=== PATIENT | female | born 1940 | race Caucasian/White ===

== ENCOUNTER 2018-02-19 16:30 | Emergency (ER) | payer OTHER ==
[~2018-02-19] VITALS: Ht 149.9 cm; Wt 73.0 kg
[2018-02-19 16:37] VITALS: BP 150/62; PULSE 78; RESP 18; TEMP 98.4; O2SAT 95
[2018-02-19] MEDS ORDERED: POTA20TA5 PO (16:57)
[2018-02-19] MEDS ORDERED: ATOR10TA15 PO (16:57)
[2018-02-19] MEDS ORDERED: ASPI-516 CHEW (16:57)
[2018-02-19] MEDS ORDERED: ALEN1TAB48 PO (16:57)
[2018-02-19] MEDS ORDERED: MULTTAB67 PO (16:57)
[2018-02-19] MEDS ORDERED: LORA-650 PO (16:57)
[2018-02-19] MEDS ORDERED: BIOTCAP PO (16:57)
[2018-02-19] MEDS ORDERED: LISI20TA3 PO (16:57)
[2018-02-19] MEDS ORDERED: TAMO20TA6 PO (16:57)
[2018-02-19] MEDS ORDERED: GLUC500C5 PO (16:57)
--- NOTE | 2018-02-19 17:19 | PD ---
HPI Chief Complaint: Back/ Neck Pain or Injury Time Seen by Provider: 17:01 Travel History International Travel<30 days: No Contact w/Intl Traveler<30days: No Traveled to known affect area: No History of Present Illness HPI 78-year-old female complains of left upper back pain, left low back pain. Patient states that the pain started about 3 days ago. Patient states the pain aching pain constant pain localized to left upper back and left low back area. Patient denies any pain radiation. Patient states that the pain is worse with movement of the left upper arm. Patient denies any headache. Patient denies any neck pain. Patient denies any chest pain. Patient denies any shortness of breath. Patient denies abdominal pain. Patient denies any nausea vomiting diarrhea. Patient denies any dysuria frequency. Patient denies any fever chills. Patient denies any recent injury. Patient was seen in personal this afternoon and referred to ED for evaluation. Physician's office patient was seen by personal physician this afternoon and referred to ED for evaluation. Patient denies numbness or weakness of the extremity. Patient denies any history of CAD. Patient denies any history of CVA. Blood pressure was reported to be elevated at physician's office. Patient has history hypertension and has been taking blood pressure medication as directed. Patient also has history of hyperlipidemia. Patient is a non-smoker. Patient has history of breast cancer status post mastectomy in the past. PFSH Past Medical History Cardiovascular Problems: Yes (HTN) High Cholesterol: Yes Musculoskeletal: Yes (OSTEOPOROSIS) Influenza Vaccination: Yes Past Surgical History Mastectomy: Yes (RIGHT) Social History Alcohol Use: No Tobacco Use: No Substance Use: No Allergies-Medications (Allergen,Severity, Reaction): Coded Allergies: No Known Allergies (Unverified , 02/19/18) Reported Meds & Prescriptions Reported Meds & Active Scripts Active Reported Atorvastatin (Atorvastatin Calcium) 10 Mg Tab 10 Mg PO HS Lisinopril-Hctz 20-25 Mg Tab 1 Tab PO DAILY Allergy Relief (Loratadine) 10 Mg Tab 10 Mg PO DAILY Aspirin 81 Mg Chew 81 Mg CHEW DAILY Biotin 5 Mg Cap 5 Mg PO DAILY Multiple Vitamin 1 Tab 1 Tab PO DAILY Glucosamine (Glucosamine Sulfate) 500 Mg Cap 1,000 Mg PO DAILY Potassium Chloride Microencaps 20 Meq Tab 99 Mg PO DAILY Alendronate (Alendronate Sodium) 70 Mg Tab 70 Mg PO Q7D Tamoxifen (Tamoxifen Citrate) 20 Mg Tab 20 Mg PO DAILY Review of Systems General / Constitutional: No: Fever Eyes: No: Visual changes HENT: No: Headaches Cardiovascular: No: Chest Pain or Discomfort Respiratory: No: Shortness of Breath Gastrointestinal: No: Abdominal Pain Genitourinary: No: Dysuria Musculoskeletal: No: Pain Skin: No Rash Neurologic: No: Weakness Psychiatric: No: Depression Endocrine: No: Polydipsia Hematologic/Lymphatic: No: Easy Bruising Physical Exam Narrative GENERAL: Well-nourished, well-developed patient. SKIN: Focused skin assessment warm/dry. HEAD: Normocephalic. EYES: No scleral icterus. No injection or drainage. NECK: Supple, trachea midline. No JVD or lymphadenopathy. CARDIOVASCULAR: Regular rate and rhythm without murmurs, gallops, or rubs. RESPIRATORY: Breath sounds equal bilaterally. No accessory muscle use. GASTROINTESTINAL: Abdomen soft, non-tender, nondistended. MUSCULOSKELETAL: No cyanosis, or edema. BACK: Patient has mild tenderness on palpation of left upper back and left low back area, without obvious deformity. No CVA tenderness. Negative straight leg raising. Neurologic exam normal. Data Data Last Documented VS Vital Signs Date Time Temp Pulse Resp B/P (MAP) Pulse Ox O2 Delivery O2 Flow Rate FiO2 02/19/18 18:26 70 18 148/67 (94) 97 Room Air 02/19/18 16:37 98.4 Orders Orders Electrocardiogram (02/19/18 17:11) Complete Blood Count With Diff (02/19/18 17:11) Basic Metabolic Panel (Bmp) (02/19/18 17:11) Creatine Kinase (Cpk) (02/19/18 17:11) Troponin I (02/19/18 17:11) Prothrombin Time / Inr (Pt) (02/19/18 17:11) Act Partial Throm Time (Ptt) (02/19/18 17:11) Urinalysis - C+S If Indicated (02/19/18 17:11) Chest, Single Ap (02/19/18 17:11) Spine, Thoracic-Ap/Lat/Sw(3vw) (02/19/18 17:11) Spine, Lumbar - Ltd (Ap & Lat) (02/19/18 17:11) Iv Access Insert/Monitor (02/19/18 17:11) Ecg Monitoring (02/19/18 17:11) Oximetry (02/19/18 17:11) Labs Laboratory Tests Test 02/19/18 17:40 02/19/18 18:20 Urine Color YELLOW Urine Turbidity CLEAR Urine pH 6.5 Urine Specific Jackson LESS/EQUAL 1.005 Urine Protein NEG mg/dL Urine Glucose (UA) NEG mg/dL Urine Ketones NEG mg/dL Urine Occult Blood NEG Urine Nitrite NEG Urine Bilirubin NEG Urine Urobilinogen 0.2 MG/DL Urine Leukocyte Esterase TRACE Urine RBC 0-3 /hpf Urine WBC 0-2 /hpf Urine Squamous Epithelial Cells 0-5 /hpf Microscopic Urinalysis Comment CULT NOT INDICATED White Blood Count 9.1 TH/MM3 Red Blood Count 4.45 MIL/MM3 Hemoglobin 12.7 GM/DL Hematocrit 38.9 % Mean Corpuscular Volume 87.5 FL Mean Corpuscular Hemoglobin 28.5 PG Mean Corpuscular Hemoglobin Concent 32.5 % Red Cell Distribution Width 12.6 % Platelet Count 195 TH/MM3 Mean Platelet Volume 8.7 FL Neutrophils (%) (Auto) 68.9 % Lymphocytes (%) (Auto) 21.9 % Monocytes (%) (Auto) 7.0 % Eosinophils (%) (Auto) 1.5 % Basophils (%) (Auto) 0.7 % Neutrophils # (Auto) 6.3 TH/MM3 Lymphocytes # (Auto) 2.0 TH/MM3 Monocytes # (Auto) 0.6 TH/MM3 Eosinophils # (Auto) 0.1 TH/MM3 Basophils # (Auto) 0.1 TH/MM3 CBC Comment DIFF FINAL Differential Comment Prothrombin Time 11.2 SEC Prothromb Time International Ratio 1.1 RATIO Activated Partial Thromboplast Time 25.9 SEC Blood Urea Nitrogen 14 MG/DL Creatinine 0.51 MG/DL Random Glucose 88 MG/DL Calcium Level 8.4 MG/DL Sodium Level 138 MEQ/L Potassium Level 3.3 MEQ/L Chloride Level 104 MEQ/L Carbon Dioxide Level 24.9 MEQ/L Anion Gap 9 MEQ/L Estimat Glomerular Filtration Rate 117 ML/MIN Total Creatine Kinase 50 U/L Troponin I LESS THAN 0.02 NG/ML MDM Medical Decision Making Medical Screen Exam Complete: Yes Emergency Medical Condition: Yes Interpretation(s) Last Impressions Thoracic Spine X-Ray 02/19/18 4142 Signed Impressions: Service Date/Time: January 17:38 - CONCLUSION: No acute disease. 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 Luis Joe MD Chest X-Ray 02/19/18 171 Signed Impressions: Service Date/Time: January 17:38 - CONCLUSION: No acute disease. Luis Joe MD 1857 PM. CBC within normal limits. Potassium 3.3. Cardiac enzymes are normal. UA is negative. Differential Diagnosis Differential diagnosis including musculoskeletal, angina, AR, PE, pneumothorax. Narrative Course 78-year-old female with left upper back and left low back pain. Diagnosis Primary Impression: Back strain Qualified Codes: S39.012A - Strain of muscle, fascia and tendon of lower back , initial encounter Patient Instructions: General Instructions Additional Instructions: Tylenol for pain. Moist heat to the back. Follow-up with personal physician. Med/Other Pt SpecificInfo: No Change to Meds Disposition: 01 DISCHARGE HOME Condition: Stable Spenser Tse MD Feb 19, 2018 17:19
[2018-02-19 17:46] LABS: BILIRUBIN, URINE NEG (NEG); BLOOD, URINE NEG (NEG); GLUCOSE,URINE NEG (NEG); KETONE, URINE NEG (NEG); NITRITE,URINE NEG (NEG); PH, URINE 6.5 (5.0-8.5); URINE COLOR YELLOW (YELLW/STRAW); URINE LEUKOCYTE ESTERASE TRACE (NEG)
[2018-02-19 17:54] LABS: RBC, URINE 0-3 /hpf (0-3); SQUAMOUS EPITHELIAL CELL URINE 0-5 /hpf (0-5); WBC, URINE 0-2 /hpf (0-5)
--- NOTE | 2018-02-19 18:07 | RADRPT ---
EXAM DATE/TIME: 02/19/2018 17:38 [facility] COMPARISON: No previous studies available for comparison. INDICATIONS : Chest discomfort; no known injury. MEDICAL HISTORY : Hypertension. Osteoporosis. SURGICAL HISTORY : Mastectomy, right. ENCOUNTER: Initial ACUITY: 1 day PAIN SCORE: 0/10 LOCATION: Bilateral chest FINDINGS: A single view of the chest demonstrates the lungs to be symmetrically aerated without evidence of inf iltrate or effusion. There is a calcified granuloma in the right upper lung. The cardiomediastinal c ontours are unremarkable. Osseous structures are intact. Clips are seen in the right lower lateral c hest. CONCLUSION: No acute disease. Luis Joe MD on February 19, 2018 at 18:04 Board Certified Radiologist. This report was verified electronically.
--- NOTE | 2018-02-19 18:09 | RADRPT ---
EXAM DATE/TIME: 02/19/2018 17:38 [facility] COMPARISON: No previous studies available for comparison. INDICATIONS : Lower back pain; No known injury. MEDICAL HISTORY : Hypertension. Osteoporosis. SURGICAL HISTORY : Mastectomy, right. ENCOUNTER: Initial ACUITY: 4 - 6 days PAIN SCORE: 4/10 LOCATION: Bilateral lumbar spine. FINDINGS: Two view examination was performed. There are five non-rib bearing vertebral bodies. The vertebral bodies are normal in height. There is grade 1 anterior spondylolisthesis of L5 on S1 secondary to par s defects. There is a mild levocurvature at the thoracolumbar region. There is mild disc space narrow ing at the L4-L5 and L5-S1 levels. There is lower lumbar facet hypertrophy. Mild marginal osteophytes are seen. The pedicles are intact. Bony mineralization is normal. No fracture is identified. The s acroiliac joints are normal. Vascular calcifications are seen. CONCLUSION: Degenerative change at the lower lumbar spine with grade 1 anterior spondylolisthesis of L5 on S1 sec ondary to pars defects. Luis Joe MD on February 19, 2018 at 18:05 Board Certified Radiologist. This report was verified electronically.
--- NOTE | 2018-02-19 18:10 | RADRPT ---
EXAM DATE/TIME: 02/19/2018 17:38 [facility] COMPARISON: No previous studies available for comparison. INDICATIONS : Back pain; no known injury. MEDICAL HISTORY : Hypertension. Osteoporosis. SURGICAL HISTORY : Mastectomy, right. ENCOUNTER: Initial ACUITY: 4 - 6 days PAIN SCORE: 4/10 LOCATION: Bilateral thoracic spine. FINDINGS: There is normal alignment of the thoracic vertebral bodies. Vertebral body height is maintained. No evidence of fracture or subluxation. Pedicles are intact at all levels. The paravertebral reflecti ons are not thickened. marginal osteophytes are seen at the upper and mid thoracic spine. There is a calcified granuloma in the right lung and calcified lymph nodes in the right paratracheal region. CONCLUSION: No acute disease. Luis Joe MD on February 19, 2018 at 18:07 Board Certified Radiologist. This report was verified electronically.
[2018-02-19 18:26] VITALS: BP 148/67; PULSE 70; RESP 18; O2SAT 97
[2018-02-19 18:27] LABS: AUTOMATED NEUTROPHIL # 6.3 TH/MM3 (1.8-7.7); BASOPHIL # 0.1 TH/MM3 (0-0.2); BASOPHIL % 0.7 % (0.0-2.0); EOSINOPHIL # 0.1 TH/MM3 (0-0.4); EOSINOPHIL % 1.5 % (0.0-4.0); HEMATOCRIT 38.9 % (35.0-46.0); HEMOGLOBIN 12.7 GM/DL (11.6-15.3); LYMPH % 21.9 % (9.0-44.0); MEAN CELL VOLUME 87.5 FL (80.0-100.0); MEAN CORPUSCULAR HEMOGLOBIN 28.5 PG (27.0-34.0); MEAN CORPUSCULAR HGB CONC 32.5 % (32.0-36.0); MEAN PLATELET VOLUME 8.7 FL (7.0-11.0); MONOCYTE # 0.6 TH/MM3 (0-0.9); NEUT % 68.9 % (16.0-70.0); PLATELET COUNT 195 TH/MM3 (150-450); RED BLOOD COUNT 4.45 MIL/MM3 (4.00-5.30); RED CELL DISTRIBUTION WIDTH 12.6 % (11.6-17.2); WHITE BLOOD COUNT 9.1 TH/MM3 (4.0-11.0)
[2018-02-19 18:37] LABS: CHLORIDE 104 MEQ/L (98-107); SODIUM (NA) 138 MEQ/L (136-145)
[2018-02-19 18:40] LABS: BICARBONATE 24.9 MEQ/L (21.0-32.0); BLOOD UREA NITROGEN 14 MG/DL (7-18); CALCIUM 8.4 MG/DL (8.5-10.1); GLUCOSE,RANDOM 88 MG/DL (74-106)
[2018-02-19 18:42] LABS: INTERNATIONAL NORMALIZED RATIO 1.1 RATIO; PROTHROMBIN TIME - PATIENT 11.2 SEC (9.8-11.6)
[2018-02-19 18:44] LABS: CREATININE 0.51 MG/DL (0.50-1.00); GLOMERULAR FILTRATION RATE 117 ML/MIN (>89)
[2018-02-19 18:48] LABS: TROPONIN I LESS THAN 0.02 NG/ML (0.02-0.05)
--- NOTE | 2018-02-20 11:13 | EKG ---
Date Performed: 02/19/2018 Time Performed: 18:00:08 PTAGE: 78 years EKG: Sinus rhythm POSSIBLE RIGHT VENTRICULAR CONDUCTION DELAY LEFT VENTRICULAR HYPERTROPHY AND ST-T CHANGE ABNORMAL EC G NO PREVIOUS TRACING DOCTOR: Abbe Orozco Interpretating Date/Time 02/20/2018 11:11:39
== END 2018-02-19 19:24 | disposition home or self-care (01) ==
LOC: PHED 16:30
DX: S39.012A Strain of muscle, fascia and tendon of lower back, initial encounter (principal); M43.16 Spondylolisthesis, lumbar region; E78.00 Pure hypercholesterolemia, unspecified; I10 Essential (primary) hypertension; R94.31 Abnormal electrocardiogram [ECG] [EKG]; X58.XXXA Exposure to other specified factors, initial encounter; Z85.3 Personal history of malignant neoplasm of breast
CPT/HCPCS: 71045; 72072; 72100; 80048; 81001; 82550; 84484; 85025; 85610; 85730; 93005; 99285